=== PATIENT | male | born 1985 | race Caucasian/White ===

== ENCOUNTER 2021-01-02 14:22 | Emergency (ER) | payer OTHER, BC ==
[2021-01-02] MEDS ORDERED: Ketorolac Tromethamine 30 MG/ML VIAL ONE (15:45)
== END 2021-01-02 18:34 | disposition home or self-care (01) ==
LOC: BURERS 14:22
DX: S22.31XA Fracture of one rib, right side, initial encounter for closed fracture (principal); S32.029A Unspecified fracture of second lumbar vertebra, initial encounter for closed fracture; S32.039A Unspecified fracture of third lumbar vertebra, initial encounter for closed fracture; S32.049A Unspecified fracture of fourth lumbar vertebra, initial encounter for closed fracture; V89.2XXA Person injured in unspecified motor-vehicle accident, traffic, initial encounter
CPT/HCPCS: 71045; 96374; J1885

== ENCOUNTER 2021-01-07 21:17 | Emergency (ER) | payer BC | END 2021-01-07 22:33 | disposition home or self-care (01) | LOC: BURERS 21:17 | DX: M54.16 Radiculopathy, lumbar region (principal); Z79.899 Other long term (current) drug therapy | CPT/HCPCS: 99283 ==